=== PATIENT | male | born 2000 | race Caucasian/White ===

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

== ENCOUNTER 2022-01-08 09:04 | Emergency (ER) | payer OTHER ==
[2022-01-08 10:09] VITALS: BP 112/65; PULSE 69; RESP 18; TEMP 98.1; BMI 20.5
[2022-01-08 14:27] LABS: THROAT:GRP A STREP NOT DETECTED (NOTDETECTED)
== END 2022-01-08 15:00 | disposition home or self-care (01) ==
LOC: JER 09:04
DX: U07.1 COVID-19 (principal)
CPT/HCPCS: 0241U-QW; 87070; 87651; 99283-25